=== PATIENT | female | born 1975 | race Hispanic/Latino ===

== ENCOUNTER 2018-12-31 21:32 | Emergency (ER) | payer BC ==
[2018-12-31] MEDS ORDERED: TETANUS/DIPHTHERIA TOXOID [ADULT] 0.5 ML VIAL IM ONE (21:52)
[2018-12-31] MEDS ORDERED: LIDOCAINE HCL MPF 1% 5ML VIAL ONE (21:55)
== END 2018-12-31 23:25 | disposition home or self-care (01) ==
LOC: EDH 21:32
DX: S61.217A Laceration without foreign body of left little finger without damage to nail, initial encounter (principal); Z98.51 Tubal ligation status; Z72.0 Tobacco use; W45.8XXA Other foreign body or object entering through skin, initial encounter; Y93.G3 Activity, cooking and baking; Y92.098 Other place in other non-institutional residence as the place of occurrence of the external cause; Y99.8 Other external cause status
CPT/HCPCS: 12001; 90471; 90714; 99284; J3490

== ENCOUNTER 2020-03-13 12:38 | Emergency (ER) | payer BC | END 2020-03-13 15:34 | disposition home or self-care (01) | LOC: EDH 12:38 | DX: S01.01XA Laceration without foreign body of scalp, initial encounter (principal); Z98.51 Tubal ligation status; W20.8XXA Other cause of strike by thrown, projected or falling object, initial encounter; Y93.89 Activity, other specified; Y92.89 Other specified places as the place of occurrence of the external cause; Y99.8 Other external cause status | CPT/HCPCS: 12001; 70450 ==

== ENCOUNTER → 2023-08-10 | Outpatient (CLI) | payer OTHER ==
[2023-08-10 13:06] LABS: CREATININE 0.8 mg/dL (0.5-1.5)
== END | disposition home or self-care (01) ==
LOC: LAB 08:54
PROVIDERS: ATTEND Internal Medicine
DX: R07.9 Chest pain, unspecified (principal)
CPT/HCPCS: 36415; 80061; 82565; 83036; 84520

== ENCOUNTER → 2023-08-12 | Outpatient (CLI) | payer OTHER | END | disposition home or self-care (01) | LOC: SHCH 13:40 | PROVIDERS: ATTEND Internal Medicine | DX: R07.9 Chest pain, unspecified (principal); I10 Essential (primary) hypertension | CPT/HCPCS: 93306 ==